=== PATIENT | female | born 1990 | race African-American/Black ===

== ENCOUNTER → 2017-03-10 | Outpatient (CLI) | payer OTHER ==
[2017-03-10 11:40] LABS: ESTRADIOL 731.3 PG/ML; PROGESTERONE 22.6 NG/ML
== END ==
LOC: M LRY 07:48
PROVIDERS: ATTEND Obstetrics & Gynecology Reproductive Endocrinology
DX: N97.9 Female infertility, unspecified (principal)

== ENCOUNTER → 2017-03-13 | Outpatient (CLI) | payer OTHER ==
[2017-03-13 12:06] LABS: PROGESTERONE 24.3 NG/ML
== END ==
LOC: M LRY 07:49
PROVIDERS: ATTEND Obstetrics & Gynecology Reproductive Endocrinology
DX: N97.9 Female infertility, unspecified (principal)

== ENCOUNTER → 2017-03-15 | Outpatient (CLI) | payer OTHER ==
[2017-03-15 11:56] LABS: PROGESTERONE 26.1 NG/ML
[2017-03-15 11:58] LABS: ESTRADIOL 467.2 PG/ML
== END ==
LOC: M LRY 07:55
PROVIDERS: ATTEND Obstetrics & Gynecology Reproductive Endocrinology
DX: Z32.01 Encounter for pregnancy test, result positive (principal)

== ENCOUNTER 2017-06-12 02:16 | Emergency (ER) | payer OTHER ==
[~2017-06-12] VITALS: Ht 172.7 cm; Wt 115.5 kg
[2017-06-12] MEDS ORDERED: SYNT25TA PO (02:23)
[2017-06-12] MEDS ORDERED: PRENTAB55 PO (02:23)
[2017-06-12] MEDS ORDERED: MUCI600T37 PO (02:23)
[2017-06-12 03:17] LABS: BASO % 0.2 % (0.0-1.0); EOS # 0.1 10^3/uL (0.0-0.50); EOS % 0.9 % (0.0-3.0); IMMATURE GRANULOCYTE % 0.7 % (0-0); LYMPH # 2.4 10^3/uL (1.5-6.5); LYMPH % 16.9 % (24.0-44.0); MEAN CORPUSCULAR HEMOGLOBIN 28.7 pg (27.0-33.0); MEAN CORPUSCULAR HGB CONC 33.4 g/dl (32.0-36.5); MEAN CORPUSCULAR VOLUME 85.9 fl (80.0-96.0); MONO # 0.8 10^3/uL (0.0-0.8); MONO % 5.8 % (0.0-5.0); NEUTROPHILS # 10.7 10^3/uL (1.8-7.7); NEUTROPHILS % 75.5 % (36.0-66.0); PLATELET COUNT, AUTOMATED 351 10^3/uL (150-450); RED CELL DISTRIBUTION WIDTH 13.2 % (11.5-14.5); WHITE BLOOD COUNT 14.2 10^3/uL (4.0-10.0)
[2017-06-12 04:02] LABS: ALBUMIN 2.9 GM/DL (3.2-5.2); ALBUMIN/GLOBULIN RATIO 0.54 (1.00-1.93); ALKALINE PHOSPHATASE 93 U/L (45-117); ALT/SGPT 19 U/L (12-78); ANION GAP 10 MEQ/L (8-16); AST/SGOT 15 U/L (7-37); BILIRUBIN,DIRECT < 0.1 MG/DL (0.0-0.2); BILIRUBIN,TOTAL 0.2 MG/DL (0.2-1.0); BLOOD UREA NITROGEN 6 MG/DL (7-18); CALCIUM LEVEL 9.4 MG/DL (8.5-10.1); CARBON DIOXIDE LEVEL 23 MEQ/L (21-32); CHLORIDE LEVEL 106 MEQ/L (98-107); CREATININE FOR GFR 0.47 MG/DL (0.55-1.02); GLOMERULAR FILTRATION RATE > 60.0 (>60); GLUCOSE, FASTING 98 MG/DL (70-105); HCG, SERUM QUANTITATIVE 18484 MIU/ML; POTASSIUM SERUM 3.9 MEQ/L (3.5-5.1); SODIUM LEVEL 139 MEQ/L (136-145); TOTAL PROTEIN 8.3 GM/DL (6.4-8.2)
--- NOTE | 2017-06-12 04:20 | REPUSA ---
CLINICAL HISTORY: Pelvic pain. TECHNIQUE: Realtime sonographic images were obtained in multiple projections via TA approach. The exa mination was performed by the sales marketing director and still images were submitted for interpretation. COMMENTS: Single, live intrauterine gestation. Breech presentation. motion was identified. heart rate 158 beats per minute. Anterior placenta. Amniotic fluid is within normal limits. Cervical length 3.4 cc. The lateral ventricle measures 8.1 mm. No maternal adnexal abnormality. Estimated gestational age is 17 weeks and 3 days. Estimated delivery date on 11/17/2017. gender was documented as main. Nuchal CORD was not seen. At least 3 fibroids in the right with the largest measuring 4.4 cm. On the left side therefore fibroids with the largest measuring 5.1 cm. IMPRESSION: Uterine fibroids. Single, live intrauterine gestation. Thank you for your kind referral of this patient.
[2017-06-12] MEDS ORDERED: MORPHINE 2 MG/ML 1ML SYRINGE IM ONE (05:15)
[2017-06-12] MEDS ORDERED: MORPHINE 2 MG/ML 1ML SYRINGE IV ONE (05:30)
[2017-06-12 06:01] VITALS: BP 147/80
== END 2017-06-12 06:10 | disposition home or self-care (01) ==
LOC: M ED 02:16
DX: O34.12 Maternal care for benign tumor of corpus uteri, second trimester (principal); Z3A.17 17 weeks gestation of pregnancy

== ENCOUNTER 2017-10-15 15:09 | Outpatient (CLI) | payer OTHER | END 2017-10-15 16:50 | disposition home or self-care (01) | LOC: M LDO 15:09 | DX: O47.03 False labor before 37 completed weeks of gestation, third trimester (principal); Z3A.34 34 weeks gestation of pregnancy | CPT/HCPCS: 59025 ==

== ENCOUNTER 2017-11-02 05:49 | Inpatient (IN) | payer OTHER ==
[2017-11-02] MEDS: LR 1,000 ML IV ×4 (06:34→18:29)
[2017-11-02 06:48] LABS: HEMATOCRIT 34.7 % (36.0-47.0); HEMOGLOBIN 11.5 g/dl (12.0-15.5); MEAN CORPUSCULAR HEMOGLOBIN 27.6 pg (27.0-33.0); MEAN CORPUSCULAR HGB CONC 33.1 g/dl (32.0-36.5); MEAN CORPUSCULAR VOLUME 83.2 fl (80.0-96.0); PLATELET COUNT, AUTOMATED 238 10^3/uL (150-450); RED BLOOD COUNT 4.17 10^6/uL (4.00-5.40); RED CELL DISTRIBUTION WIDTH 15.4 % (11.5-14.5); WHITE BLOOD COUNT 10.9 10^3/uL (4.0-10.0)
[2017-11-02] MEDS ORDERED: LR 1,000 ML IV (07:00)
[2017-11-02] MEDS ORDERED: fentaNYL 100 MCG/2 ML INJECTION (J3010) As Ordered ×3 (07:31→09:34)
[2017-11-02] MEDS ORDERED: OXYTOCIN INJ 10 UNITS/ML VIAL (J2590) As Ordered (07:31)
[2017-11-02] MEDS ORDERED: ONDANSETRON 4MG/2ML VIAL (J2405) As Ordered (07:31)
[2017-11-02] MEDS ORDERED: MORPHINE PRES-FREE INJ 10 MG/10 ML VIAL (J2274) As Ordered (07:31)
[2017-11-02] MEDS ORDERED: dexameTHASONE 4 MG/ML 1ML VIAL (J1100) As Ordered (07:31)
[2017-11-02] MEDS: BICITRA 30ML SOLN UDC PO (07:45)
[2017-11-02] MEDS ORDERED: NALOXONE INJ 0.4 MG/1 ML VIAL (J2310) IV ×2 (07:58)
[2017-11-02] MEDS ORDERED: METOCLOPRAMIDE INJ 10MG/2ML VIAL (J2765) IV (07:58)
[2017-11-02] MEDS ORDERED: ONDANSETRON 4MG/2ML VIAL (J2405) IV ×2 (07:58→10:15)
[2017-11-02] MEDS ORDERED: NALBUPHINE HCL 10 MG/ML AMP (J2300) IV (07:58)
[2017-11-02] MEDS ORDERED: ePHEDrine SULFATE 25 MG/5 ML(5MG/ML) SYRINGE As Ordered (08:35)
[2017-11-02] MEDS ORDERED: PHENYLephrine HCL 500 MCG/5 ML (100MCG/ML) SYRINGE (J2370) As Ordered (08:35)
[2017-11-02] MEDS: DOCUSATE SODIUM 100 MG CAP PO ×2 (09:00→20:10)
[2017-11-02 09:21] LABS: CORD GAS ABE V -3.9; CORD GAS O2 SAT V 80.8 %; CORD GAS PCO2 V 48.7 mmHg; CORD GAS PH V 7.293 UNITS; CORD GAS PO2 V 40.4 mmHg; CORD GAS SBC V 20.9 MEQ/L; CORD GAS TCO2 V 24.5 MEQ/L
[2017-11-02] MEDS ORDERED: fentaNYL 100 MCG/2 ML INJECTION (J3010) IV (10:15)
[2017-11-02] MEDS ORDERED: PERCOCET 5MG/325MG TAB PO (10:15)
[2017-11-02] MEDS ORDERED: MEASLES,MUMPS,RUBELLA VACCINE INJ (MMR-II) (90707) SC (10:30)
[2017-11-02] MEDS ORDERED: RHOGAM 300 MCG (1500 IU) INJ (J2790) IM (10:30)
[2017-11-02] MEDS: KETOROLAC 30 MG/ML VIAL (J1885) IV ×2 (14:11→20:10)
[2017-11-03] MEDS: KETOROLAC 30 MG/ML VIAL (J1885) IV ×2 (02:01→08:27)
[2017-11-03] MEDS: LR 1,000 ML IV ×3 (02:29→18:29)
[2017-11-03 06:34] LABS: HEMATOCRIT 28.4 % (36.0-47.0); MEAN CORPUSCULAR HEMOGLOBIN 27.3 pg (27.0-33.0); MEAN CORPUSCULAR HGB CONC 32.4 g/dl (32.0-36.5); MEAN CORPUSCULAR VOLUME 84.3 fl (80.0-96.0); PLATELET COUNT, AUTOMATED 211 10^3/uL (150-450); RED BLOOD COUNT 3.37 10^6/uL (4.00-5.40); RED CELL DISTRIBUTION WIDTH 15.2 % (11.5-14.5); WHITE BLOOD COUNT 16.2 10^3/uL (4.0-10.0)
[2017-11-03 06:37] LABS: HEMOGLOBIN 9.2 g/dl (12.0-15.5)
[2017-11-03] MEDS: PERCOCET 5MG/325MG TAB PO ×4 (07:01→19:59)
[2017-11-03] MEDS: PRENATAL VITAMINS CHEWABLE TABLET PO (08:27)
[2017-11-03] MEDS: DOCUSATE SODIUM 100 MG CAP PO ×2 (08:27→19:59)
[2017-11-03] MEDS: IBUPROFEN 800 MG TAB PO (15:32)
[2017-11-03] MEDS: MORPHINE 4 MG/ML 1ML VIAL/SYRINGE (J2270) IV (23:48)
[2017-11-04] MEDS: IBUPROFEN 800 MG TAB PO ×3 (00:13→15:59)
[2017-11-04] MEDS: PERCOCET 5MG/325MG TAB PO ×5 (01:40→18:48)
[2017-11-04] MEDS: PRENATAL VITAMINS CHEWABLE TABLET PO (08:15)
[2017-11-04] MEDS: DOCUSATE SODIUM 100 MG CAP PO (08:16)
== END 2017-11-04 19:00 | disposition home or self-care (01) | DRG 766 ==
LOC: M LDI 05:49 → M OBS 11:42
PROVIDERS: Obstetrics & Gynecology
PROC: 10D00Z1 Extraction of Products of Conception, Low, Open Approach (ICD-10-PCS; principal; 2017-11-02 07:30)
DX: O99.284 Endocrine, nutritional and metabolic diseases complicating childbirth (principal); O99.214 Obesity complicating childbirth; Z37.0 Single live birth; Z3A.37 37 weeks gestation of pregnancy; E66.9 Obesity, unspecified; Z68.39 Body mass index [BMI] 39.0-39.9, adult; E03.9 Hypothyroidism, unspecified; N83.202 Unspecified ovarian cyst, left side; D25.9 Leiomyoma of uterus, unspecified; O34.13 Maternal care for benign tumor of corpus uteri, third trimester; O34.83 Maternal care for other abnormalities of pelvic organs, third trimester; Z79.899 Other long term (current) drug therapy

== ENCOUNTER 2018-02-01 16:44 | Inpatient (IN) | payer OTHER ==
[2018-02-01 18:50] LABS: BASO % 0.4 % (0.0-1.0); EOS # 0.2 10^3/uL (0.0-0.50); HEMATOCRIT 38.4 % (36.0-47.0); HEMOGLOBIN 12.5 g/dl (12.0-15.5); IMMATURE GRANULOCYTE % 0.6 % (0-3.0); LYMPH # 2.1 10^3/uL (1.5-6.5); LYMPH % 30.9 % (24.0-44.0); MEAN CORPUSCULAR HEMOGLOBIN 26.8 pg (27.0-33.0); MEAN CORPUSCULAR HGB CONC 32.6 g/dl (32.0-36.5); MEAN CORPUSCULAR VOLUME 82.4 fl (80.0-96.0); MONO # 0.6 10^3/uL (0.0-0.8); MONO % 9.2 % (0.0-5.0); NEUTROPHILS # 3.8 10^3/uL (1.8-7.7); NEUTROPHILS % 55.9 % (36.0-66.0); PLATELET COUNT, AUTOMATED 10 10^3/uL (150-450); POS COUNT POS FLAG; POSITIVE MORPH POS FLAG; RED BLOOD COUNT 4.66 10^6/uL (4.00-5.40); RED CELL DISTRIBUTION WIDTH 14.7 % (11.5-14.5); WHITE BLOOD COUNT 6.8 10^3/uL (4.0-10.0)
[2018-02-01 18:51] LABS: ADD MORPHOLOGY? YES; SUSPECT SAMPLE POS FLAG
[2018-02-01 18:52] LABS: IMMATURE PLATELET FRACTION % 10.3 % (0.0-9.6)
[2018-02-01 19:03] LABS: PLATELET ESTIMATE MARKED DECREASE (NORMAL)
[2018-02-01 19:35] LABS: INR 1.01; PROTHROMBIN TIME 13.4 SECONDS (12.1-14.4)
[2018-02-01 19:36] LABS: PARTIAL THROMBOPLASTIN TIME 26.4 SECONDS (25.4-37.6)
[2018-02-01 19:42] LABS: ALBUMIN 3.6 GM/DL (3.2-5.2); ALBUMIN/GLOBULIN RATIO 0.86 (1.00-1.93); ALKALINE PHOSPHATASE 178 U/L (45-117); ALT/SGPT 48 U/L (12-78); ANION GAP 8 MEQ/L (8-16); AST/SGOT 20 U/L (7-37); BILIRUBIN,DIRECT < 0.1 MG/DL (0.0-0.2); BILIRUBIN,TOTAL 0.3 MG/DL (0.2-1.0); BLOOD UREA NITROGEN 13 MG/DL (7-18); CALCIUM LEVEL 8.4 MG/DL (8.5-10.1); CARBON DIOXIDE LEVEL 26 MEQ/L (21-32); CHLORIDE LEVEL 109 MEQ/L (98-107); CREATININE FOR GFR 0.84 MG/DL (0.55-1.30); GLOMERULAR FILTRATION RATE > 60.0 (>60); GLUCOSE, FASTING 99 MG/DL (70-100); POTASSIUM SERUM 3.4 MEQ/L (3.5-5.1); SODIUM LEVEL 143 MEQ/L (136-145); TOTAL PROTEIN 7.8 GM/DL (6.4-8.2)
[2018-02-01 20:12] LABS: PLTBLUE- EDTA FREE CALC 3 K/mm3 (172-450)
[2018-02-01 20:15] LABS: PLTBLUE- EDTA FREE MACHINE 3 10^3/uL (172-450)
[2018-02-01] MEDS ORDERED: ACETAMINOPHEN 500 MG TAB PO (20:15)
[2018-02-01 20:19] LABS: COLLAGEN EPINEPHRINE > 300 SECONDS (74-162)
[2018-02-01 20:31] LABS: IMMEDIATE SPIN CROSSMATCH 1
[2018-02-01 20:39] LABS: LDH LACTATE DEHYDROGENASE 226 U/L (84-246)
[2018-02-01] MEDS: dexameTHASONE 20 MG/5 ML VIAL (J1100) IV (20:45)
[2018-02-01 20:47] LABS: COLLAGEN ADP > 300 SECONDS (56-103)
[2018-02-01] MEDS: ADVAIR HFA 45/21MCG INHALER INH (21:00)
[2018-02-01 22:46] LABS: TYPE AND SCREEN 1 1
[2018-02-02 04:26] LABS: HEMATOCRIT 40.6 % (36.0-47.0); HEMOGLOBIN 12.9 g/dl (12.0-15.5); MEAN CORPUSCULAR HEMOGLOBIN 26.4 pg (27.0-33.0); MEAN CORPUSCULAR HGB CONC 31.8 g/dl (32.0-36.5); MEAN CORPUSCULAR VOLUME 83.2 fl (80.0-96.0); RED BLOOD COUNT 4.88 10^6/uL (4.00-5.40); RED CELL DISTRIBUTION WIDTH 14.6 % (11.5-14.5)
[2018-02-02 04:51] LABS: ALBUMIN 3.5 GM/DL (3.2-5.2); ALBUMIN/GLOBULIN RATIO 0.73 (1.00-1.93); ALKALINE PHOSPHATASE 171 U/L (45-117); ALT/SGPT 42 U/L (12-78); ANION GAP 8 MEQ/L (8-16); AST/SGOT 16 U/L (7-37); BILIRUBIN,TOTAL 0.3 MG/DL (0.2-1.0); BLOOD UREA NITROGEN 13 MG/DL (7-18); CALCIUM LEVEL 8.8 MG/DL (8.5-10.1); CARBON DIOXIDE LEVEL 23 MEQ/L (21-32); CHLORIDE LEVEL 108 MEQ/L (98-107); GLOMERULAR FILTRATION RATE > 60.0 (>60); GLUCOSE, FASTING 178 MG/DL (70-100); SODIUM LEVEL 139 MEQ/L (136-145); TOTAL PROTEIN 8.3 GM/DL (6.4-8.2)
[2018-02-02 05:05] LABS: POS COUNT POS FLAG
[2018-02-02 05:06] LABS: PLATELET COUNT, AUTOMATED 19 10^3/uL (150-450)
[2018-02-02] MEDS: MONTELUKAST 10 MG TAB PO (08:33)
[2018-02-02] MEDS: CETIRIZINE (ZyrTEC) 10 MG TAB PO (08:33)
[2018-02-02] MEDS: PRENATAL VITAMINS CHEWABLE TABLET PO (08:33)
[2018-02-02] MEDS: ADVAIR HFA 45/21MCG INHALER INH ×2 (10:05→20:14)
[2018-02-02 13:47] LABS: REASON FOR REVIEW PLATELET MORPHOLOGY; SLIDE REVIEW Report; SOURCE PERIPHERAL SMEAR
[2018-02-02 16:42] LABS: IMMEDIATE SPIN CROSSMATCH 1
[2018-02-02] MEDS: dexameTHASONE 20 MG/5 ML VIAL (J1100) IV (19:57)
[2018-02-02] MEDS: CALCIUM CARBONATE 500 MG CHEW U/D PO (20:03)
[2018-02-02 20:10] LABS: HEMATOCRIT 38.2 % (36.0-47.0); HEMOGLOBIN 12.3 g/dl (12.0-15.5); MEAN CORPUSCULAR HEMOGLOBIN 26.3 pg (27.0-33.0); MEAN CORPUSCULAR HGB CONC 32.2 g/dl (32.0-36.5); MEAN CORPUSCULAR VOLUME 81.8 fl (80.0-96.0); RED BLOOD COUNT 4.67 10^6/uL (4.00-5.40); RED CELL DISTRIBUTION WIDTH 14.6 % (11.5-14.5); WHITE BLOOD COUNT 14.6 10^3/uL (4.0-10.0)
[2018-02-02 20:31] LABS: PLATELET COUNT, AUTOMATED 30 10^3/uL (150-450)
[2018-02-02 20:33] LABS: IMMATURE PLATELET FRACTION % 7.3 % (0.0-9.6)
[2018-02-03 06:38] LABS: HEMATOCRIT 39.3 % (36.0-47.0); HEMOGLOBIN 12.5 g/dl (12.0-15.5); MEAN CORPUSCULAR HEMOGLOBIN 26.3 pg (27.0-33.0); MEAN CORPUSCULAR HGB CONC 31.8 g/dl (32.0-36.5); MEAN CORPUSCULAR VOLUME 82.6 fl (80.0-96.0); RED BLOOD COUNT 4.76 10^6/uL (4.00-5.40); RED CELL DISTRIBUTION WIDTH 14.7 % (11.5-14.5); WHITE BLOOD COUNT 12.5 10^3/uL (4.0-10.0)
[2018-02-03 06:41] LABS: PLATELET COUNT, AUTOMATED 19 10^3/uL (150-450); POS COUNT POS FLAG
[2018-02-03 06:55] LABS: ANION GAP 9 MEQ/L (8-16); BLOOD UREA NITROGEN 10 MG/DL (7-18); CALCIUM LEVEL 8.6 MG/DL (8.5-10.1); CARBON DIOXIDE LEVEL 25 MEQ/L (21-32); CHLORIDE LEVEL 109 MEQ/L (98-107); CREATININE FOR GFR 0.66 MG/DL (0.55-1.30); GLOMERULAR FILTRATION RATE > 60.0 (>60); GLUCOSE, FASTING 132 MG/DL (70-100); POTASSIUM SERUM 3.9 MEQ/L (3.5-5.1); SODIUM LEVEL 143 MEQ/L (136-145)
[2018-02-03] MEDS: ADVAIR HFA 45/21MCG INHALER INH ×2 (07:59→20:27)
[2018-02-03] MEDS: CETIRIZINE (ZyrTEC) 10 MG TAB PO (08:31)
[2018-02-03] MEDS: MONTELUKAST 10 MG TAB PO (08:31)
[2018-02-03] MEDS: PRENATAL VITAMINS CHEWABLE TABLET PO (08:31)
[2018-02-03] MEDS: CALCIUM CARBONATE 500 MG CHEW U/D PO ×3 (08:31→21:37)
[2018-02-03 10:21] LABS: HEMATOCRIT 41.5 % (36.0-47.0); HEMOGLOBIN 13.7 g/dl (12.0-15.5); MEAN CORPUSCULAR HEMOGLOBIN 26.8 pg (27.0-33.0); MEAN CORPUSCULAR VOLUME 81.1 fl (80.0-96.0); RED BLOOD COUNT 5.12 10^6/uL (4.00-5.40); RED CELL DISTRIBUTION WIDTH 14.7 % (11.5-14.5)
[2018-02-03 10:23] LABS: PLATELET COUNT, AUTOMATED 22 10^3/uL (150-450); POS COUNT POS FLAG
[2018-02-03 17:05] LABS: HEMATOCRIT 40.6 % (36.0-47.0); HEMOGLOBIN 13.4 g/dl (12.0-15.5); MEAN CORPUSCULAR HEMOGLOBIN 27.1 pg (27.0-33.0); RED BLOOD COUNT 4.95 10^6/uL (4.00-5.40); RED CELL DISTRIBUTION WIDTH 14.9 % (11.5-14.5); WHITE BLOOD COUNT 10.4 10^3/uL (4.0-10.0)
[2018-02-03 17:14] LABS: PLATELET COUNT, AUTOMATED 31 10^3/uL (150-450)
[2018-02-03 19:45] LABS: IMMEDIATE SPIN CROSSMATCH 1
[2018-02-03] MEDS: dexameTHASONE 20 MG/5 ML VIAL (J1100) IV (21:36)
[2018-02-04 06:23] LABS: HEMATOCRIT 39.4 % (36.0-47.0); HEMOGLOBIN 12.5 g/dl (12.0-15.5); MEAN CORPUSCULAR HGB CONC 31.7 g/dl (32.0-36.5); MEAN CORPUSCULAR VOLUME 81.9 fl (80.0-96.0); RED BLOOD COUNT 4.81 10^6/uL (4.00-5.40); RED CELL DISTRIBUTION WIDTH 14.9 % (11.5-14.5); WHITE BLOOD COUNT 9.4 10^3/uL (4.0-10.0)
[2018-02-04 06:32] LABS: PLATELET COUNT, AUTOMATED 21 10^3/uL (150-450); POS COUNT POS FLAG
[2018-02-04 06:33] LABS: IMMATURE PLATELET FRACTION % 7.8 % (0.0-9.6)
[2018-02-04] MEDS: ADVAIR HFA 45/21MCG INHALER INH ×2 (08:13→21:00)
[2018-02-04] MEDS: MONTELUKAST 10 MG TAB PO (09:30)
[2018-02-04] MEDS: CETIRIZINE (ZyrTEC) 10 MG TAB PO (09:30)
[2018-02-04] MEDS: CALCIUM CARBONATE 500 MG CHEW U/D PO ×3 (09:30→20:24)
[2018-02-04] MEDS: PRENATAL VITAMINS CHEWABLE TABLET PO (09:31)
[2018-02-04] MEDS: IMMUNE GLOBULIN 10% 20GM 200ML 80 GM in APPROPRIATE DILUENT 1 EA IV (11:55)
[2018-02-04] MEDS: ALBUTEROL 90 MCG/ACT 8GM HFA INHALER INH (14:27)
[2018-02-04] MEDS: OMEPRAZOLE 20 MG CAP PO (18:17)
[2018-02-04] MEDS: dexameTHASONE 20 MG/5 ML VIAL (J1100) IV (20:25)
[2018-02-05 00:06] LABS: HEPARIN INDUCED PLATELET ABY 0.582 OD (0.000-0.400)
== END 2018-02-04 20:37 | disposition home or self-care (01) | DRG 813 ==
LOC: M MS5PR 02-02 21:20 → M ED 16:44 → M MS5PR 02-02 21:25 → M ED INP 20:10 → M ICU 21:57
PROC: 30233R1 Transfusion of Nonautologous Platelets into Peripheral Vein, Percutaneous Approach (ICD-10-PCS; principal; 2018-02-01)
DX: D69.3 Immune thrombocytopenic purpura (principal); E87.6 Hypokalemia; R10.11 Right upper quadrant pain; J30.2 Other seasonal allergic rhinitis; Z79.899 Other long term (current) drug therapy

== ENCOUNTER → 2018-02-06 | Outpatient (REF) | payer OTHER ==
[2018-02-08 00:13] LABS: H PYLORI SERUM QUANT IGM <9.0 units (0.0-8.9)
[2018-02-08 00:13] LABS: H PYLORI SERUM QUANT IgG ABY 2.18 (0.00-0.79)
== END ==
LOC: M LAB REF 12:51
DX: Z00.00 Encounter for general adult medical examination without abnormal findings (principal)